=== PATIENT | male | born 1995 | race Caucasian/White ===

== ENCOUNTER 2023-06-06 21:38 | Emergency (ER) | payer SELFPAY ==
[2023-06-06] MEDS ORDERED: Cephalexin 250 MG Cap PO ONE (21:42)
[2023-06-06] MEDS ORDERED: Lidocaine 2% with EPINEPHrine 1:100,000 20 ML MDV INJECT ONE (21:46)
[2023-06-06] MEDS ORDERED: Diphtheria,Pertussis(Acell),Tetanus Vaccine 0.5 ML Syringe IM ONE (21:46)
[2023-06-07] MEDS ORDERED: Bacitracin Oint 30 GM Tube TOP STA (03:31)
== END 2023-06-06 22:45 | disposition home or self-care (01) ==
LOC: KA.ED 21:38
DX: S71.112A Laceration without foreign body, left thigh, initial encounter (principal); Z23 Encounter for immunization; W26.0XXA Contact with knife, initial encounter
CPT/HCPCS: 12001; 90471; 90715; 99283; A9270; J3490